=== PATIENT | male | born 1995 | race American Indian/Alaskan Native ===

== ENCOUNTER 2017-09-02 19:02 | Emergency (ER) | payer MEDICAID ==
[2017-09-02 19:28] VITALS: BP 132/84
--- NOTE | 2017-09-02 21:28 | XRay Report ---
FINAL REPORT EXAM: XR HAND BILAT 3+V HISTORY: trauma . Patient punched a shower wall today. TECHNIQUE: AP, lateral, and oblique portable views of both hands PRIORS: None. FINDINGS: There are bilateral acute fractures involving the necks of both 5th metacarpals. Angulation of the fracture fragments at both fracture sites is noted with the apex directed dorsally. Overlying soft tissue swelling is present especially over the dorsum of the metacarpals bilaterally. There is no evidence for dislocation. No radiopaque foreign bodies are seen. Bony mineralization is normal and joint spaces are maintained. IMPRESSION: Bilateral acute fractures of both 5th metacarpal necks. Angulation is noted bilaterally with the fracture fragments directed dorsally.
[2017-09-02] MEDS ORDERED: MOTRIN PO ONE ×2 (22:07→22:11)
[2017-09-02] MEDS ORDERED: MOTRIN ONE (22:08)
== END 2017-09-02 23:50 | disposition left against medical advice (07) ==
LOC: ED 19:02
DX: M79.642 Pain in left hand (principal); M79.641 Pain in right hand; Z53.21 Procedure and treatment not carried out due to patient leaving prior to being seen by health care provider

== ENCOUNTER 2017-09-03 17:30 | Emergency (ER) | payer MEDICAID ==
[2017-09-03] MEDS ORDERED: MOTRIN PO ONE (19:20)
[2017-09-03] MEDS ORDERED: NORCO 10/325 PO ONE (19:20)
--- NOTE | 2017-09-03 19:30 | Emergency Department Report ---
Upper Extremity - HPI Chief Complaint: Extremity Injury, Upper Stated Complaint: SWOLLEN HANDS Time Seen by Provider: 09/03/17 19:19 Upper Extremity: Left Hand, Right Hand Occurred When: 1 Day Symptoms: Yes Pain with Movement, Yes Limited Range of Movement, Yes Swelling, Yes Bruising/Ecchymosis, No Deformity, No Numbness, No Weakness, No Laceration or Abrasion Other History: 22-year-old male past medical history HIV, bipolar disorder since with complaint of bilateral hand pain and swelling. Patient states that he was discharged from a hospital several days ago and was upset that he was being discharged so punched a wall with both hands. Patient has experienced pain and swelling in both hands since. Visible swelling both hands. Patient is awake alert and oriented 3. Denies suicidal or homicidal ideation at this time. Patient is right-handed. Denies sustaining any lacerations. ED Review of Systems ROS: Stated complaint: SWOLLEN HANDS Other details as noted in HPI Constitutional: denies: chills, fever Eyes: denies: eye pain, eye discharge, vision change ENT: denies: ear pain, throat pain Respiratory: denies: cough, shortness of breath, wheezing Cardiovascular: denies: chest pain, palpitations Endocrine: no symptoms reported Gastrointestinal: denies: abdominal pain, nausea, diarrhea Genitourinary: denies: urgency, dysuria Musculoskeletal: as per HPI, arthralgia. denies: back pain, joint swelling Skin: denies: rash, lesions Neurological: denies: headache, weakness, paresthesias Psychiatric: denies: anxiety, depression Hematological/Lymphatic: denies: easy bleeding, easy bruising ED Past Medical Hx - Past Medical History Hx Psychiatric Treatment: Yes (bipolar) Hx HIV: Yes - Social History Smoking Status: Never Smoker Substance Use Type: None - Medications Home Medications: Home Medications Medication Instructions Recorded Confirmed Last Taken Type HYDROcodone/APAP 5-325 [[place] 1 each PO Q6HR PRN #10 tablet 09/03/17 Unknown Rx 5/325] Ibuprofen [Motrin] 600 mg PO Q8H PRN #20 tablet 09/03/17 Unknown Rx Upper Extremity Exam - Exam General: Vital signs noted. No distress. Alert and acting appropriately. Head and Torso: No HEENT Abnormality, No Neck Tenderness, No Chest/Lungs Abnormality, No Abdominal Tenderness, No Back Tenderness Shoulder Exam: Yes Normal Range of Motion in Shoulder, No Shoulder Tenderness, No Clavicle Tenderness, No Shoulder Deformity, No AC Joint Tenderness Arm Exam: No Arm/Humerus Tenderness, No Arm Deformity Elbow: No Elbow Tenderness, No Normal Range of Motion in Elbow, No Elbow Deformity Forearm: No Forearm Tenderness, No Forearm Deformity, No Pain with Pronation, No Pain with Supination Wrist: Yes Normal ROM in Wrist (flexion and extension clinically intact both wrists), No Wrist Tenderness, No Wrist Deformity, No Snuffbox Tenderness, No Pain with Axial Thumb Compression Hand: Yes Hand Tenderness (bilateral hand tenderness of fifth metacarpal with associated external swelling), Yes Hand Deformity (bilateral hand swelling), Yes Normal ROM in Digit(s), No Digit Tenderness, No Digit(s) Deformity, No Tendon Dysfunction CMS Exam: Yes Normal Distal Pulses (distal radial brachial and ulnar pulses strong to palpation, distal sensation and capillary refill intact), Yes Normal Capillary Refill, Yes Normal Distal Sensation, No Broken Skin Hand L/R Back: 1 - Swelling here 2 - Swelling here ED Course Vital Signs 09/03/17 17:37 Temperature 98.7 F Pulse Rate 77 Respiratory 16 Rate Blood Pressure 129/80 O2 Sat by Pulse 100 Oximetry ED Medical Decision Making - Medical Decision Making A/P: Bilateral boxer's fractures 1-patient placed in bilateral boxer's/ulnar gutter splints 2-I informed him that follow-up with orthopedics is very important to mitigate any long-term disability or permanent damage to his motor function in both hands. Distal pulses and sensation is clinically intact on exam 3-Motrin when necessary, short course [place] when necessary 4- follow-up with primary care and orthopedics 5- case discussed with before dc 6- patient states he is following up as an outpatient for his bipolar disorder. Denies any suicidal or homicidal ideation at this time. I informed psych case technician Ms. Spears of patient's current clinical situation. Ms. Spears provided patient with some outpatient usp and psych prenatal genetic counselor resources. Critical care attestation.: If time is entered above; I have spent that time in minutes in the direct care of this critically ill patient, excluding procedure time. ED Disposition Clinical Impression: Bilateral hand pain Boxer's fracture Qualifiers: Encounter type: initial encounter Fracture type: closed Qualified Code(s): S62.339A - Displaced fracture of neck of unspecified metacarpal bone, initial encounter for closed fracture Disposition: TO HOME OR SELFCARE Is pt being admited?: No Does the pt Need Aspirin: No Condition: Stable Instructions: Boxer Fracture (ED), Hand Fracture (ED) Prescriptions: HYDROcodone/APAP 5-325 [[place] 5/325] 1 each PO Q6HR PRN #10 tablet PRN Reason: Pain Ibuprofen [Motrin] 600 mg PO Q8H PRN #20 tablet PRN Reason: Pain Referrals: MARGO YEBOAH MD [Staff Physician] - 3-5 Days [facility] [Provider Group] - 3-5 Days Time of Disposition: 19:47
[2017-09-03 21:19] VITALS: BP 126/56
== END 2017-09-03 21:36 | disposition home or self-care (01) ==
LOC: ED 17:30
DX: S62.339A Displaced fracture of neck of unspecified metacarpal bone, initial encounter for closed fracture (principal); M79.641 Pain in right hand; M79.642 Pain in left hand; F31.9 Bipolar disorder, unspecified; X58.XXXA Exposure to other specified factors, initial encounter; Y93.89 Activity, other specified; Y99.8 Other external cause status; Y92.89 Other specified places as the place of occurrence of the external cause

== ENCOUNTER 2017-09-09 01:33 | Emergency (ER) | payer MEDICAID ==
[2017-09-09 02:03] VITALS: BP 122/66
--- NOTE | 2017-09-09 03:34 | XRay Report ---
FINAL REPORT PROCEDURE: XR FOOT 3+V RT TECHNIQUE: RIGHT foot radiographs, AP, lateral, and oblique views. CPT 60189 HISTORY: trauma COMPARISON: No prior studies are available for comparison. FINDINGS: Fracture (s) and/or Dislocation(s): None . Alignment: Normal . Joint space(s): Normal . Soft tissues: Normal . Bone mineralization: Normal . Foreign bodies: None . Calcaneal spurring: None . IMPRESSION: Normal Examination .
[2017-09-09] MEDS ORDERED: MOTRIN PO ONE (05:34)
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
== END 2017-09-09 06:25 | disposition home or self-care (01) ==
LOC: ED 01:33
DX: S96.911A Strain of unspecified muscle and tendon at ankle and foot level, right foot, initial encounter (principal); F31.9 Bipolar disorder, unspecified; F17.200 Nicotine dependence, unspecified, uncomplicated; W51.XXXA Accidental striking against or bumped into by another person, initial encounter; Y93.89 Activity, other specified; Y99.8 Other external cause status; Y92.89 Other specified places as the place of occurrence of the external cause